=== PATIENT | female | born 1965 | race Caucasian/White ===

== ENCOUNTER → 2020-07-23 12:47 | Outpatient (CLI) | payer BC, SELFPAY ==
--- NOTE | ~2020-07-23 | MM_ITS ---
EXAMINATION: MM screening rigo BI w wil HISTORY: Screening TECHNIQUE: Craniocaudal and mediolateral oblique 3-D tomosynthesis images were obtained and synthetic 2-D images were generated. CAD analysis was submitted and interpreted. COMPARISON: Comparison to multiple prior studies sequentially, with oldest reviewed study dated 04/04. BREAST PARENCHYMAL COMPOSITION: There are scattered areas of fibroglandular density. FINDINGS: There is no evidence of suspicious mass, calcification, or architectural distortion to sugg est malignancy in either breast. There has been no suspicious interval change. IMPRESSION: 1. No mammographic evidence of malignancy. 2. Recommend routine screening mammography in one year. BI-RADS Category 1: Negative Reviewed, dictated and finalized at location A.
== END ==
PROVIDERS: PCP Family Medicine; Visit Provider Student in an Organized Health Care Education/Training Program
DX: Z12.31 Encounter for screening mammogram for malignant neoplasm of breast (principal)
CPT/HCPCS: 77063; 77067

== ENCOUNTER 2020-08-13 13:20 | Outpatient (CLI) | payer BC, SELFPAY ==
--- NOTE | 2020-08-13 13:22 | ECG_ITS ---
Measurements Intervals [place] Rate: 68 P: 57 [place]: 137 QRS: 13 QRSD: 83 T: 10 QT: 382 QTc: 409 Interpretive Statements SINUS RHYTHM EARLY PRECORDIAL R/S TRANSITION BORDERLINE T WAVE ABNORMALITY- ANT/INF LEADS BASELINE ARTIFACT- I, III, AVR, AVL, AVF BORDERLINE ECG Electronically Signed On 08-13-2020 13:44:48 CDT by Ric Lyons D.O.
== END 2020-08-13 13:21 | disposition home or self-care (01) ==
LOC: ANHSURGERY 13:22
PROVIDERS: PCP Family Medicine; Visit Provider Student in an Organized Health Care Education/Training Program
DX: Z87.891 Personal history of nicotine dependence (principal); Z01.818 Encounter for other preprocedural examination; R94.31 Abnormal electrocardiogram [ECG] [EKG]
CPT/HCPCS: 93005

== ENCOUNTER 2020-08-18 01:37 | Outpatient (CLI) | payer BC, SELFPAY ==
[2020-08-19 03:00] LABS: SARS-CoV-2 RNA PCR Negative
== END 2020-08-18 01:38 | disposition home or self-care (01) ==
LOC: ANHCOVIDDT 01:37
PROVIDERS: PCP Family Medicine; Visit Provider Student in an Organized Health Care Education/Training Program
DX: Z01.812 Encounter for preprocedural laboratory examination (principal); Z11.59 Encounter for screening for other viral diseases
CPT/HCPCS: 87635; C9803; U0003

== ENCOUNTER 2020-08-20 01:35 | Day surgery (SDC) | payer BC, SELFPAY ==
[2020-08-10 12:55] VITALS: BMI 30.4
--- NOTE | 2020-08-19 07:39 | PM.IMHP ---
H&P: HPI History of Present Illness Date/Time: 08/19/20 07:39 Patient is a 55-year-old woman who presents for a scheduled loop electrosurgical excision procedure (LEEP ). Patient had a routine Pap smear performed in June 2020 that showed atypical squamous cells, however, unable to exclude high-grade lesion. Patient underwent a colposcopy. 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 Discussion was had with patient regarding further management and decision was made to proceed with LEEP procedure. Patient reports feeling well today without complaints. Chief complaint: MALINI III Narrative: Tammie Flores is a 55 year old female Review of Systems Review of Systems: All systems reviewed & are unremarkable except as noted in HPI and below Constitutional: Constitutional: Reports as per HPI, Reports no additional constitutional complaints, Denies chills, Denies fever(s), Denies headache(s) and Denies night sweats Eyes: Eyes: Reports as per HPI and Reports no additional eye complaints ENT: Reports system reviewed and no additional complaints, except as documented, Reports as per HPI, Reports Normal hearing present and Denies headache(s) Cardiovascular: Cardiovascular: Reports as per HPI, Reports no additional cardiovascular complaints, Denies chest pain and Denies dyspnea Respiratory: Respiratory: Reports as per HPI, Reports no additional respiratory complaints, Denies cough and Denies dyspnea Gastrointestinal: Gastrointestinal: Reports as per HPI, Reports no additional gastrointestinal complaints, Denies abdominal pain, Denies change in bowel habits, Denies change in stool character, Denies nausea and Denies vomiting Genitourinary: Genitourinary: Reports no additional female genitourinary complaints, Reports as per HPI, Denies abnormal vaginal bleeding, Denies genital lesions, Denies hot flashes, Denies dyspareunia, Denies pelvic pain, Denies sexual dysfunction, Denies urinary incontinence, Denies vaginal discharge, Denies vaginal dryness and Denies vaginal odor Musculoskeletal: Musculoskeletal: Reports no additional musculoskeletal complaints and Reports as per HPI Integumentary/Breasts: Skin/Breast: Reports system reviewed and no additional complaints, except as docu, Reports as per HPI, Denies breast pain and Denies nipple discharge Neurologic: Reports system reviewed and no additional complaints, except as documented, Reports as per HPI, Reports Normal hearing present and Denies headache(s) Psychiatric: Psychiatric: Reports no additional psychiatric complaints, Reports as per HPI, Denies anxiety and Denies depression Endocrine: Endocrine: Reports no additional endocrine complaints and Reports as per HPI Hematologic/Lymphatic: Hematologic/Lymphatic: Reports no additional hematologic/lymphatic complaints and Reports as per HPI Allergic/Immunologic: Allergic/Immunologic: Reports no additional allergic/immunologic complaints and Reports as per HPI PMF Past Medical History Medical History Acid reflux Anxiety BMI 29.0-29.9,adult Depression Vaginal delivery Surgical History Surgical History History of endometrial ablation History of tubal ligation Social History Social History Smoking packs per day: 0.5 Smoking cigarettes per day: 10.0 Years smoked: 40 Smoking pack-years: 20.00 Smoking status: Former smoker Tobacco type: cigarettes Second hand tobacco smoke exposure: No Smoking end date: 10/15/01 Additional smoking assessment comments: QUIT 3 YEARS AGO Alcohol intake: current Drinks per week: 2 Substance use type: marijuana Spiritual care concerns: No Meds Home Medications and Allergies Home Medications Medication Instructions Recorded Confirmed Type Black Elderberry Gummy 1 ea PO DAILY 08/10/20 History Allergies
--- NOTE | 2020-08-19 10:18 | WPDANESEPPF ---
Anes - Initial Pre Proc Eval Procedure: Operation Date: 08/20/20 08:30 Proposed Procedures p Loop Electrical Excision Procedure - Gwendolyn Spear MD Date/Time: 08/19/20 10:18 Surgeon: Gwendolyn Spear MD Pre Op Diagnosis: MALINI III Patient Data Age: 55 Gender: F Height: 1.64 m Weight: 81.65 kg Allergies Allergy/AdvReac Type Severity Reaction Status Date / Time No Known Allergies Allergy Verified 08/10/20 12:55 Home Medications Medication Instructions Recorded Confirmed Type Black Elderberry Gummy 1 ea PO DAILY 08/10/20 History PMFSH Past Medical History Medical History Acid reflux Anxiety BMI 29.0-29.9,adult Depression Vaginal delivery Surgical History Surgical History History of endometrial ablation History of tubal ligation Social History Social History Smoking packs per day: 0.5 Smoking cigarettes per day: 10.0 Years smoked: 40 Smoking pack-years: 20.00 Smoking status: Former smoker Tobacco type: cigarettes Second hand tobacco smoke exposure: No Smoking end date: 10/15/01 Additional smoking assessment comments: QUIT 3 YEARS AGO Alcohol intake: current Drinks per week: 2 Substance use type: marijuana Spiritual care concerns: No Anes - Eval Final PreProcedure Day of Procedure 08/19/20 10:18 Patient weight: obese Heart: regular rate and rhythm Lungs: clear to auscultation and normal air movement Airway: Mallampati scale class II Neurological: alert and oriented Last oral intake: >/= 8 hours ASA classification: II Emergent: no Anesthetic plan: proceed Anesthesia type and monitoring: general GIVS Informed Consent: The patient's anesthetic plan and its attendant risks and benefits were discussed with the patient/family/POA. Questions were solicited and answers provided to the satisfaction of the patient/family/POA.
[2020-08-20] MEDS: LACTATED RINGERS 1,000 ML 30 ML IV CONT (06:53)
[2020-08-20] MEDS: ACETAMINOPHEN 500 MG TABLET 1000 MG PO (06:54)
[2020-08-20 07:00] VITALS: BP 123/68; PULSE 80; RESP 18; TEMP 36.4; O2SAT 100
--- NOTE | 2020-08-20 07:28 | WPDHPUPDATE1 ---
History and Physical Update Update Date/Time: 08/20/20 07:28 History and Physical has been reviewed, including an updated exam of the patient. There are NO changes in the patient's condition. Risks, benefits, and alternatives have been discussed and questions answered. Patient agrees to proceed with procedure.
--- NOTE | 2020-08-20 08:08 | WPDANESEPPF ---
Anes - Initial Pre Proc Eval Procedure: Operation Date: 08/20/20 08:30 Proposed Procedures p Loop Electrical Excision Procedure - Gwendolyn Spear MD Date/Time: 08/20/20 08:08 Surgeon: Gwendolyn Spear MD Pre Op Diagnosis: MALINI III Patient Data Age: 55 Gender: F Height: 5 ft 4.5 in Weight: 81.65 kg Allergies Allergy/AdvReac Type Severity Reaction Status Date / Time No Known Allergies Allergy Verified 08/20/20 08:03 Home Medications Medication Instructions Recorded Confirmed Type Black Elderberry Gummy 1 ea PO DAILY 08/10/20 History Patient hx anesthesia problems: none Family hx anesthesia problems: none PMFSH Past Medical History Medical History Acid reflux Anxiety BMI 29.0-29.9,adult Depression Vaginal delivery Surgical History Surgical History History of endometrial ablation History of tubal ligation Social History Social History Smoking packs per day: 0.5 Smoking cigarettes per day: 10.0 Years smoked: 40 Smoking pack-years: 20.00 Smoking status: Former smoker Tobacco type: cigarettes Second hand tobacco smoke exposure: No Smoking end date: 10/15/01 Additional smoking assessment comments: QUIT 3 YEARS AGO Alcohol intake: current Drinks per week: 2 Substance use type: marijuana Spiritual care concerns: No Anes - Eval Final PreProcedure Day of Procedure 08/20/20 08:08 Patient weight: obese Heart: regular rate and rhythm Lungs: clear to auscultation Airway: Mallampati scale class 1 Neurological: alert and oriented Last oral intake: >/= 8 hours ASA classification: II Emergent: no Anesthetic plan: proceed Anesthesia type and monitoring: general GIVS and standard monitoring Informed Consent: The patient's anesthetic plan and its attendant risks and benefits were discussed with the patient/family/POA. Questions were solicited and answers provided to the satisfaction of the patient/family/POA.
--- NOTE | 2020-08-20 08:19 | PM.PROC ---
Procedure Note - Detailed Date of procedure: 08/20/20 Pre-op diagnosis: MALINI III Post-op diagnosis: same Procedure performed: Loop electrosurgical excision procedure Description of procedure: The patient was taken to the operating room where she self-transferred to the operating room table. She was placed in dorsal supine position. Anesthesia was administered and found to be adequate. The patient was repositioned in dorsal lithotomy position and prepped and draped in the usual sterile fashion. A red rubber catheter was used to drain the bladder of 150cc clear urine. A coated bivalve speculum was inserted into the vagina and suction tubing was connected to the speculum. The cervix was well visualized. A paracervical block was performed with 1% lidocaine. 5 cc of lidocaine was administered on both sides for a total of 10 cc. Lugol's solution was applied across the entire surface of the cervix. A moderate sized area of non-uptake was noted circumferentially around the cervix, with a wider area noted superiorly. A wide loop was selected and connected to the electrical generator. This loop was used to excise a portion of the anterior surface of the cervix, including the cervical os. A single pass was made. The specimen was removed and set aside. A top hat portion of the endocervical canal was then excised with a smaller square loop. An endocervical curettage was also performed. Rollerball cautery was used to cauterize the entire excision site and margins of the excision bed. Excellent hemostasis was noted. The procedure was deemed complete. The vagina was dried and the speculum was removed. Both the anterior portion of the cervix and the top hat specimen were tagged at 12:00 with a suture. Specimen were prepared to be sent to pathology for analysis. The patient was cleansed and dried. She was taken out of the dorsal lithotomy position and awakened from anesthesia without difficulty. She was transported to the recovery room in stable condition. All sponge and instrument counts were correct at the end of the procedure. Anesthesia: MAC Surgeon: Gwendolyn Spear MD Estimated blood loss (mL): 5 IV fluids (mL): 500 Urine output (mL): 150 Drains: No Packing: No Pathology: yes (anterior portion of cervix tagged at 12:00 , top hat portion of cervix tagged at 12:00, endocervical curettage) Complications: No immediate complications Condition: stable Disposition: floor Findings: Moderate area of non-uptake noted circumferentially around cervix, however, wider area noted superiorly
[2020-08-20] MEDS: LIDOCAINE HCL 1% LOCAL INJ 20 ML VIAL 50 ML INFILTRATE (08:28)
[2020-08-20] MEDS: IODINE/POTASSIUM IODIDE 8 ML SOLUTION 16 ML TOPICAL (08:29)
[2020-08-20 08:53] VITALS: BP 83/51; PULSE 69; RESP 10; O2SAT 96
[2020-08-20 09:23] VITALS: BP 96/57; PULSE 64; RESP 12; O2SAT 100
== END 2020-08-20 09:35 | disposition home or self-care (01) ==
PROVIDERS: PCP Family Medicine; Visit Provider Student in an Organized Health Care Education/Training Program
PROC: 0UBC7ZZ Excision of Cervix, Via Natural or Artificial Opening (ICD-10-PCS; CPT 57522; principal; 2020-08-20 08:30)
DX: D06.9 Carcinoma in situ of cervix, unspecified (principal); Z87.891 Personal history of nicotine dependence; E66.9 Obesity, unspecified; Z68.30 Body mass index [BMI] 30.0-30.9, adult
CPT/HCPCS: 57522; 88305; A9270; J2250; J3010; J7120

== ENCOUNTER 2021-08-04 09:39 | Emergency (ER) | payer BC, SELFPAY ==
--- NOTE | ~2021-08-04 | CT_ITS ---
EXAMINATION: CT abdomen pelvis w con DATE: 08/04/2021 11:04 INDICATION: Epigastric pain TECHNIQUE: Computed tomography (CT) of the abdomen and pelvis was performed with 100 mL Omnipaque-350 intravenous contrast. Automated exposure control and iterative reconstruction technique were employe d. The dose-length product was 543.76 mGy-cm. COMPARISON: None FINDINGS: Small calcified right lower lobe nodule consistent with old granulomatous disease. Heart size is norm al. No pericardial or pleural effusion. 5 mm low-attenuation cyst in the right hepatic lobe. Gallblad humberto, spleen, pancreas, bilateral adrenal glands and kidneys are normal. There are several gas and flu id-filled duodenal diverticulum arising from the second and third portion of the duodenum. There is i nflammatory stranding and haziness to the mesenteric fat surrounding additional large diverticulum al tejinder the proximal most jejunum consistent with diverticulitis. There are multiple small likely reactiv e lymph nodes along the associated small bowel mesentery. No bowel obstruction. There is moderate col onic diverticulosis with a sigmoid predominance but without adjacent inflammatory change to suggest d iverticulitis. Normal appendix. Bladder, uterus and bilateral adnexa are unremarkable. Trace amount o f free fluid in the pelvis. No abscess or free intraperitoneal gas. No pathologically enlarged abdomi nal or pelvic lymphadenopathy. Minimal anterior wedging at L1 and L2. Mild lumbar spondylosis. IMPRESSION: 1. Radiographically uncomplicated proximal jejunal diverticulitis. Reviewed, dictated and finalized at location A.
[2021-08-04 09:51] VITALS: BP 125/52; PULSE 121; RESP 20; TEMP 36.4; O2SAT 97
[2021-08-04 10:11] LABS: Basophils Absolute Auto 0.1 K/mm3 (0.0-0.1); Basophils Percent Auto 0.4 % (0.2-1.2); Eosinophils Percent Auto 0.1 % (0-4.4); Immature Granulocyte Absolute 0.12 K/mm3 (0.00-0.031); Immature Granulocyte Percent A 0.7 % (0-0.5); Lymphocytes Absolute Auto 0.83 K/mm3 (0.9-3.2); Lymphocytes Percent Auto 4.9 % (18.3-44.2); Mean Corpuscular HGB Conc 33.3 g/dl (32-36); Mean Corpuscular Hemoglobin 30.9 pg (26-34); Mean Corpuscular Volume 92.8 fl (80-100); Mean Platelet Volume 9.6 fl (7.4-10.4); Monocytes Percent Auto 5.9 % (2.6-8.5); Neutrophils Absolute Auto 14.8 K/mm3 (1.3-6.7); Platelet Count Result 296 k/mm3 (150-375); Red Blood Count 4.85 M/mm3 (4.2-5.4); Red Cell Distribution Width 12.7 % (11.5-14.5); White Blood Count 16.8 K/mm3 (4.5-10.0)
[2021-08-04 10:27] LABS: Alanine Aminotransferase 19 U/L (4-35); Albumin Level 4.7 g/dL (3.5-5.1); Alkaline Phosphatase 106 U/L (38-126); Anion Gap 11 mmol/L (8-16); Aspartate Amino Transferase 28 U/L (14-36); Bilirubin,Total 1.3 mg/dL (0.2-1.3); Blood Urea Nitrogen 13 mg/dL (7-17); Calcium 9.7 mg/dL (8.4-10.2); Carbon Dioxide 25 mmol/L (22-30); Chloride 101 mmol/L (98-107); Estimated CRCL calculation 117 ml/min; Estimated Glomerular Filt Rate > 60; Glucose 122 mg/dL (65-110); Lipase 26 U/L (23-300); Potassium 4.2 mmol/L (3.4-5.0); Sodium 137 mmol/L (137-145)
[2021-08-04] MEDS: ONDANSETRON INJ 4 MG/2 ML VIAL IV PUSH (10:28)
[2021-08-04] MEDS: BELLADONNA ALK/PHENOB ELIX 10 ML, MAG HYDROX/ALUMINUM HYD/SIMETH 30 ML, LIDOCAINE HCL 2... PO (11:15)
[2021-08-04] MEDS: SODIUM CHLORIDE 0.9% IV 1,000 ML 999 ML IV CONT (11:16)
[2021-08-04] MEDS: MORPHINE SULFATE (*CRX) 2 MG/ML INJ IV PUSH (11:16)
[2021-08-04 11:37] VITALS: BP 104/85; PULSE 92; RESP 18; O2SAT 97
[2021-08-04 12:09] LABS: Add Urine Microscopic? NO; Appearance Urine Clear (Clear); Bilirubin Urine Negative (Negative); Blood Urine Negative (Negative); Color Urine Straw (Yellow); Glucose Urine UA Negative (Negative); Ketones Urine Negative (Negative); Leukocyte Esterase Ur Negative LEU/UL (Negative); Nitrate Urine Negative (Negative); Protein Urine Negative (Negative); RBC Urine 0-2 /hpf (0-2); Specific Grav Ur 1.029 (1.001-1.035); Squamous Epithelial Cell Urine Few /hpf (Few); Urobilinogen Urine Negative mg/dL (<2.0); WBC Urine 0-3 /hpf
--- NOTE | 2021-08-04 12:15 | ED.ABDPAIN ---
HPI - Abdominal Pain General Chief Complaint: Abdominal Pain <ART Gresham Last Filed: 08/04/21 12:29> Stated Complaint: ABD pain, bloating <ART Gresham Last Filed: 08/04/21 12:29> Time Seen by Provider: 08/04/21 09:49 <ART Gresham Last Filed: 08/04/21 12:29> Source: patient <ART Gresham Last Filed: 08/04/21 12:29> Mode of arrival: ambulatory <ART G[place]am Last Filed: 08/04/21 12:29> Limitations: no limitations <ART Gresham Last Filed: 08/04/21 12:29> History of Present Illness HPI narrative: Patient presents with chief complaint of epigastric discomfort that began yesterday. Patient reports that she does not know the cause of her discomfort. She reports a bloating-like sensation. She denies any fevers, vomiting or inability to eat and drink. Patient denies history of appendicitis. She reports she has history of GERD and only takes her omeprazole as needed. She reports that her sensation is not the same as GERD flareup. Patient denies any diarrhea, constipation or blood in her stool. She denies chest pain or shortness of breath. <ART Gresham Last Filed: 08/04/21 12:29> Related Data Home Medications: Home Medications Medication Instructions Recorded Confirmed Black Elderberry Gummy 1 ea PO DAILY 08/10/20 <ART Gresham Last Filed: 08/04/21 12:29> Allergies/Adverse Reactions: Allergies Allergy/AdvReac Type Severity Reaction Status Date / Time No Known Allergies Allergy Verified 07/01/21 13:09 <ART Gresham Last Filed: 08/04/21 12:29> Review of Systems Review of Systems: CONSTITUTIONAL: Denies fever, chills, or sweats. EYES: Denies visual changes, redness, or discharge. ENT: Denies rhinorrhea, congestion, sore throat, or otalgia. CARDIOVASCULAR: Denies chest pain, palpitations, or edema. RESPIRATORY: Denies cough or dyspnea. GASTROINTESTINAL: Reports abdominal pain, denies vomiting, or diarrhea. GENITOURINARY: Denies dysuria or hematuria. SKIN: Denies rash or itching. MUSCULOSKELETAL: Denies back pain, joint pain, or myalgia. NEUROLOGIC: Denies headache, numbness, dizziness, or weakness. PSYCHIATRIC: Denies anxiety or depression. <Catalino Perry PA-C - Last Filed: 08/04/21 12:29> PMFSH Past Medical History Medical History: Medical History Acid reflux Anxiety BMI 29.0-29.9,adult Depression Vaginal delivery <Catalino Perry PA-C - Last Filed: 08/04/21 12:29> Surgical History Surgical History: Surgical History History of endometrial ablation History of tubal ligation <Catalino Perry PA-C - Last Filed: 08/04/21 12:29> Social History Social History: Social History Smoking packs per day: 0.5 Smoking cigarettes per day: 10.0 Years smoked: 40 Smoking pack-years: 20.00 Smoking status: Former smoker Tobacco type: cigarettes Second hand tobacco smoke exposure: No Smoking end date: 10/15/01 Additional smoking assessment comments: QUIT 3 YEARS AGO Alcohol intake: current Drinks per week: 2 Substance use type: marijuana Spiritual care concerns: No <Catalino Perry PA-C - Last Filed: 08/04/21 12:29> Exam Narrative: GENERAL: Well-appearing, well-nourished, and in no acute distress. HEAD: Normocephalic, atraumatic. EYES: PERRLA and EOMI. NECK: Supple. No adenopathy or masses. CHEST: Clear to auscultation. No respiratory distress. No wheezes rales or rhonchi HEART: Regular rate and rhythm. No murmur heard. Normal peripheral pulses. ABDOMEN: Soft, tender to palpation epigastrically, nondistended, normal active bowel sounds. EXTREMITIES: Normal range of motion. No edema. SKIN: Warm, dry, no rash. NEURO: No focal deficits. Alert and oriented
[2021-08-04 12:42] VITALS: BP 152/77; PULSE 68; RESP 14; TEMP 37.2; O2SAT 100
== END 2021-08-04 12:43 | disposition home or self-care (01) ==
PROVIDERS: Emergency Provider Emergency Medicine; PCP Family Medicine
DX: K57.12 Diverticulitis of small intestine without perforation or abscess without bleeding (principal); K21.9 Gastro-esophageal reflux disease without esophagitis; Z87.891 Personal history of nicotine dependence
CPT/HCPCS: 36415; 74177; 80053; 81003; 81025; 83690; 85025; 96361; 96374; 96375; 99284; A9270; J0131; J1170; J2270; J2405; J3010; J7030; Q9967

== ENCOUNTER 2021-08-26 07:26 | Outpatient (CLI) | payer BC, SELFPAY ==
--- NOTE | ~2021-08-26 | XR_ITS ---
EXAMINATION: XR UGIAC w small bowel DATE: 08/26/2021 08:59 INDICATION: Jejunal diverticulitis without perforation. TECHNIQUE: The patient drank thick barium, gas-producing crystals, and thin barium. Fluoroscopy of th e esophagus, stomach, and small bowel was performed. Fluoroscopy exposure time was 0.7 minutes. Radio graphs of the abdomen were obtained. The total number of images was 252. COMPARISON: CT abdomen and pelvis 08/04/2021 FINDINGS: UPPER GASTROINTESTINAL SERIES: There is no mass or stricture of the esophagus. Esophageal motility is normal. There is no hiatal her wendy. There was no gastroesophageal reflux with provocative maneuvers. The stomach shows a normal fold ing pattern. SMALL BOWEL SERIES: There are multiple diverticula of the duodenum and proximal jejunum. There are no dilated loops of christopher wel. The terminal ileum is normal. Transit time to the colon was 30 minutes. IMPRESSION: 1. Diverticulosis of the duodenum and proximal jejunum. Reviewed, dictated and finalized at location A. IRATORY TECHNICIAN
== END 2021-08-26 07:27 | disposition home or self-care (01) ==
PROVIDERS: PCP Family Medicine; Visit Provider Nurse Practitioner Family
DX: K57.12 Diverticulitis of small intestine without perforation or abscess without bleeding (principal)
CPT/HCPCS: 74246; 74248

== ENCOUNTER 2021-09-30 00:20 | Day surgery (SDC) | payer BC, SELFPAY ==
[2021-09-22 13:08] VITALS: BMI 28.7
[2021-09-30 07:25] VITALS: BP 118/75; PULSE 77; RESP 18; TEMP 36.2; O2SAT 100; BMI 26.8
--- NOTE | 2021-09-30 07:46 | WPDANESEPPF ---
Anes - Initial Pre Proc Eval Procedure: Operation Date: 09/30/21 08:30 Proposed Procedures p Esophagogastroduodenoscopy - Dimitri Maciel MD Date/Time: 09/30/21 07:46 Surgeon: Dimitri Maciel MD Pre Op Diagnosis: diverticulitis of the small intestine Patient Data Age: 56 Gender: F Height: 1.65 m Weight: 73.1 kg Last Vital Signs Temp 36.2 C L 09/30/21 07:25 Pulse 77 09/30/21 07:25 Resp 18 09/30/21 07:25 BP 118/75 09/30/21 07:25 Pulse Ox 100 09/30/21 07:25 Allergies Allergy/AdvReac Type Severity Reaction Status Date / Time No Known Allergies Allergy Verified 09/30/21 07:27 Home Medications Medication Instructions Recorded Confirmed Type No Home Medications 09/22/21 09/30/21 History Patient hx anesthesia problems: none Family hx anesthesia problems: none Results Review: All pre-operative results and documents have been reviewed as part of the pre-operative evaluation. [facility] Past Medical History Medical History Acid reflux Anxiety BMI 29.0-29.9,adult Depression Diverticulitis of jejunum Vaginal delivery Surgical History Surgical History History of endometrial ablation History of tubal ligation Social History Social History Smoking packs per day: 0.5 Smoking cigarettes per day: 10.0 Years smoked: 35 Smoking pack-years: 17.50 Smoking status: Former smoker Tobacco type: cigarettes Second hand tobacco smoke exposure: No Smoking end date: 10/15/16 Additional smoking assessment comments: QUIT 3 YEARS AGO Alcohol intake: current Drinks per week: 1 Alcohol use details: social drinker Substance use type: marijuana Living arrangements: with family Spiritual care concerns: No Anes - Eval Final PreProcedure Day of Procedure 09/30/21 07:46 Patient weight: overweight Heart: regular rate and rhythm Lungs: clear to auscultation Airway: Mallampati scale class 1 Neurological: alert and oriented Last oral intake: >/= 8 hours ASA classification: II Emergent: no Anesthetic plan: proceed Anesthesia type and monitoring: general GIVS and standard monitoring Results Review: All pre-operative results and documents have been reviewed as part of the pre-operative evaluation. Informed Consent: The patient's anesthetic plan and its attendant risks and benefits were discussed with the patient/family/POA. Questions were solicited and answers provided to the satisfaction of the patient/family/POA.
[2021-09-30] MEDS: LACTATED RINGERS 1,000 ML 150 ML IV CONT (07:48)
--- NOTE | 2021-09-30 07:55 | WPDGICN ---
Assessment and Plan Assessment and plan (1) Diverticulitis of jejunum: Code(s): K57.12 - Diverticulitis of small intestine without perforation or abscess without bleeding Status: Acute Assessment and Plan: patient has resolved diverticulitis of the small bowel. Appears to have diverticula within the jejunum. Would recommend transitioning to a high-fiber diet at this time. (2) Heartburn: Code(s): R12 - Heartburn Status: Acute Assessment and Plan: Patient has chronic heartburn suggesting underlying acid reflux for this reason EGD will be performed antacids are beneficial. Anti-reflux measures encourage including elevating head of bed at night no late snacks bland foods. Further recommendations regarding medications will be given after endoscopy. GI Consult Note Consult date/time: 09/30/21 07:55 HPI: Tammie Flores is a 56 year old female Presents for EGD. Patient has a history of diverticulitis in July of 2021. She developed mid abdominal pain. Workup in evaluation in the emergency room revealed small bowel diverticulitis. A subsequent follow-up and small-bowel series revealed multiple jejunal diverticula. Patient has been on a low residue diet. She currently denies abdominal pain. Her bowel habits are regular. Patient also reports a history of heartburn for many years. She currently treats this with intermittent use of [id number] antacids. EGD has been requested to evaluate more thoroughly. Review of Systems Review of Systems: All systems reviewed & are unremarkable except as noted in HPI and below PMFSH Past Medical History Medical History Acid reflux Anxiety BMI 29.0-29.9,adult Depression Diverticulitis of jejunum Vaginal delivery Surgical History Surgical History History of endometrial ablation History of tubal ligation Social History Social History Smoking packs per day: 0.5 Smoking cigarettes per day: 10.0 Years smoked: 35 Smoking pack-years: 17.50 Smoking status: Former smoker Tobacco type: cigarettes Second hand tobacco smoke exposure: No Smoking end date: 10/15/16 Additional smoking assessment comments: QUIT 3 YEARS AGO Alcohol intake: current Drinks per week: 1 Alcohol use details: social drinker Substance use type: marijuana Living arrangements: with family Spiritual care concerns: No Meds Home Medications and Allergies Home Medications Medication Instructions Recorded Confirmed Type No Home Medications 09/22/21 09/30/21 History Allergies Allergy/AdvReac Type Severity Reaction Status Date / Time No Known Allergies Allergy Verified 09/30/21 07:27 Vital Signs Vital Signs - 24 hr 09/30/21 07:25 Temperature 97.1 F L Pulse Rate 77 Respiratory Rate 18 Blood Pressure 118/75 Pulse Oximetry 100 Exam Narrative: Physical exam reveals patient to be alert. Vital signs stable. HEENT exam is unremarkable. Patient is anicteric. Lungs are clear to auscultation and percussion. Heart is without murmur or extra sounds. Abdominal exam bowel sounds present soft nontender with no organomegaly.
[2021-09-30 08:45] VITALS: BP 109/75; PULSE 71; RESP 27; O2SAT 100
[2021-09-30 08:55] VITALS: BP 131/85; PULSE 70; RESP 14; O2SAT 100
[2021-09-30 09:05] VITALS: BP 129/87; PULSE 70; RESP 15; O2SAT 100
== END 2021-09-30 09:19 | disposition home or self-care (01) ==
PROVIDERS: PCP Family Medicine; Visit Provider Internal Medicine Gastroenterology
PROC: 0DJ08ZZ Inspection of Upper Intestinal Tract, Via Natural or Artificial Opening Endoscopic (ICD-10-PCS; CPT 43235; principal; 2021-09-30 08:30)
DX: R12 Heartburn (principal); K21.00 Gastro-esophageal reflux disease with esophagitis, without bleeding; F41.8 Other specified anxiety disorders; Z87.891 Personal history of nicotine dependence; F12.90 Cannabis use, unspecified, uncomplicated
CPT/HCPCS: 43239; 87081; J2704; J7120

== ENCOUNTER → 2021-11-04 12:47 | Outpatient (CLI) | payer BC, SELFPAY ==
--- NOTE | ~2021-11-04 | MM_ITS ---
EXAMINATION: MM screening rigo BI w wil HISTORY: Screening TECHNIQUE: Craniocaudal and mediolateral oblique 3-D tomosynthesis images were obtained and synthetic 2-D images were generated. CAD analysis was submitted and interpreted. COMPARISON: Comparison to multiple prior studies sequentially, with oldest reviewed study dated 10/30. BREAST PARENCHYMAL COMPOSITION: There are scattered areas of fibroglandular density. FINDINGS: There is no evidence of suspicious mass, calcification, or architectural distortion to sugg est malignancy in either breast. There has been no suspicious interval change. IMPRESSION: 1. No mammographic evidence of malignancy. 2. Recommend routine screening mammography in one year. BI-RADS Category 1: Negative Reviewed, dictated and finalized at location A. LE PASTER
== END ==
PROVIDERS: PCP Family Medicine; Visit Provider Student in an Organized Health Care Education/Training Program
DX: Z12.31 Encounter for screening mammogram for malignant neoplasm of breast (principal)
CPT/HCPCS: 77063; 77067

== ENCOUNTER → 2022-12-29 15:28 | Outpatient (CLI) | payer BC, SELFPAY ==
--- NOTE | ~2022-12-29 | MM_ITS ---
EXAMINATION: MM screening rigo BI w wil HISTORY: Screening mammogram TECHNIQUE: Craniocaudal and mediolateral oblique 3-D tomosynthesis images were obtained and synthetic 2-D images were generated. CAD analysis was submitted and interpreted. COMPARISON: 10/26/2021, 08/02/2020, 05/16/2019 bilateral screening mammogram examinations BREAST PARENCHYMAL COMPOSITION: There are scattered areas of fibroglandular density. FINDINGS: There is no evidence of suspicious mass, calcification, or architectural distortion to sugg est malignancy in either breast. There has been no suspicious interval change. IMPRESSION: 1. No mammographic evidence of malignancy. 2. Recommend routine screening mammography in one year. BI-RADS Category 1: Negative Reviewed, dictated and finalized at location A.
== END ==
PROVIDERS: PCP Obstetrics & Gynecology; Visit Provider Family Medicine
DX: Z12.31 Encounter for screening mammogram for malignant neoplasm of breast (principal)
CPT/HCPCS: 77063; 77067

== ENCOUNTER 2023-01-05 01:44 | Day surgery (SDC) | payer BC, SELFPAY ==
[2022-12-28 13:00] VITALS: BMI 27.5
[2023-01-05 06:54] VITALS: BP 117/75; PULSE 90; RESP 20; TEMP 36.4; O2SAT 100; BMI 26.6
[2023-01-05] MEDS: LACTATED RINGERS 1,000 ML 150 ML IV CONT (07:01)
--- NOTE | 2023-01-05 07:05 | P.PNAN_ITS ---
Anes - Initial Pre Proc Eval Procedure: Operation Date: 01/05/23 08:00 Proposed Procedures p Screening Colonoscopy - Dimitri Maciel MD Date/Time: 01/05/23 07:06 Surgeon: Dimitri Maciel MD Pre Op Diagnosis: neoplasm screening Patient Data Age: 57 Gender: F Height: 1.65 m Weight: 72.5 kg Last Vital Signs Temp 36.4 C L 01/05/23 06:54 Pulse 90 01/05/23 06:54 Resp 20 01/05/23 06:54 BP 117/75 01/05/23 06:54 Pulse Ox 100 01/05/23 06:54 O2 Del Method Room Air 01/05/23 06:54 Allergies Allergy/AdvReac Type Severity Reaction Status Date / Time No Known Allergies Allergy Verified 01/05/23 06:53 Patient hx anesthesia problems: none Family hx anesthesia problems: none Results Review: All pre-operative results and documents have been reviewed as part of the pre- operative evaluation. [facility] Past Medical History Medical History Acid reflux Anxiety BMI 29.0-29.9,adult Depression Diverticulitis of jejunum Vaginal delivery Surgical History Surgical History History of endometrial ablation History of tubal ligation Social History Social History Smoking packs per day: 0.5 Smoking cigarettes per day: 10.0 Years smoked: 30 Smoking pack-years: 15.00 Smoking status: Former smoker Tobacco type: cigarettes Second hand tobacco smoke exposure: No Smoking end date: 10/15/16 Additional smoking assessment comments: QUIT 3 YEARS AGO Alcohol intake: current Drinks per week: 1 Alcohol use details: social drinker Substance use type: does not use Living arrangements: with family Spiritual care concerns: No Anes - Eval Final PreProcedure Day of Procedure 01/05/23 07:06 Patient weight: overweight Heart: regular rate and rhythm Lungs: clear to auscultation Airway: Mallampati scale class II Neurological: alert and oriented Last oral intake: >/= 8 hours ASA classification: II Emergent: no Anesthetic plan: proceed Anesthesia type and monitoring: general GIVS and standard monitoring Results Review: All pre-operative results and documents have been reviewed as part of the pre- operative evaluation. Informed Consent: The patient's anesthetic plan and its attendant risks and benefits were discussed with the patient/family/POA. Questions were solicited and answers provided to the satisfaction of the patient/family/POA.
--- NOTE | 2023-01-05 07:55 | PM.HPGS ---
History of Present Illness History of Present Illness Consent: Risks, benefits, and alternatives have been discussed and questions answered. Patient agrees to proceed with procedure. Chief complaint: neoplasm screening Narrative: Tammie Flores is a 57 year old female Presents for screening colonoscopy. Patient's current weight appetite and bowel movements are normal. Patient denies abdominal pain. She has had no bleeding. Family history noncontributory. Review of Systems Review of Systems: Review of systems noncontributory. [facility] Past Medical History Medical History Acid reflux Anxiety BMI 29.0-29.9,adult Depression Diverticulitis of jejunum Vaginal delivery Surgical History Surgical History History of endometrial ablation History of tubal ligation Social History Social History Smoking packs per day: 0.5 Smoking cigarettes per day: 10.0 Years smoked: 30 Smoking pack-years: 15.00 Smoking status: Former smoker Tobacco type: cigarettes Second hand tobacco smoke exposure: No Smoking end date: 10/15/16 Additional smoking assessment comments: QUIT 3 YEARS AGO Alcohol intake: current Drinks per week: 1 Alcohol use details: social drinker Substance use type: does not use Living arrangements: with family Spiritual care concerns: No Meds Home Medications and Allergies Allergies Allergy/AdvReac Type Severity Reaction Status Date / Time No Known Allergies Allergy Verified 01/05/23 06:53 Vital Signs Vital Signs - 24 hr 01/05/23 06:54 Temperature 97.5 F L Pulse Rate 90 Respiratory Rate 20 Blood Pressure 117/75 Pulse Oximetry 100 Oxygen Delivery Room Air Exam Narrative: Physical exam reveals patient be alert. Vital signs stable. HEENT exam is unremarkable. Patient is anicteric. Lungs are clear to auscultation and percussion. Heart is without murmur or extra sounds. Abdominal exam bowel sounds present soft nontender with no hepatosplenomegaly. Digital external rectal exam is normal. Assessment and Plan Assessment and plan (1) Encounter for screening colonoscopy: Code(s): Z12.11 - Encounter for screening for malignant neoplasm of colon Status: Acute Assessment and Plan: Patient presents for screening colonoscopy. Appears to be at average risk for colon polyps.
[2023-01-05 08:22] VITALS: BP 101/66; PULSE 81; RESP 16; O2SAT 100
[2023-01-05 08:32] VITALS: BP 107/71; PULSE 79; RESP 13; O2SAT 100
[2023-01-05 08:42] VITALS: BP 108/75; PULSE 73; RESP 16; O2SAT 100
== END 2023-01-05 08:47 | disposition home or self-care (01) ==
PROVIDERS: PCP Family Medicine; Visit Provider Internal Medicine Gastroenterology
PROC: 0DJD8ZZ Inspection of Lower Intestinal Tract, Via Natural or Artificial Opening Endoscopic (ICD-10-PCS; CPT 45378; principal; 2023-01-05 08:00)
DX: Z12.11 Encounter for screening for malignant neoplasm of colon (principal); K62.1 Rectal polyp; K64.8 Other hemorrhoids; K57.30 Diverticulosis of large intestine without perforation or abscess without bleeding; Z87.891 Personal history of nicotine dependence
CPT/HCPCS: 45385; 88305; J2704; J7120

== ENCOUNTER 2024-02-15 12:12 | Outpatient (CLI) | payer BC, SELFPAY ==
--- NOTE | ~2024-02-15 | MM_ITS ---
EXAMINATION: MM screening rigo BI w wil HISTORY: Screening mammogram TECHNIQUE: Craniocaudal and mediolateral oblique 3-D tomosynthesis images were obtained and synthetic 2-D images were generated. CAD analysis was submitted and interpreted. COMPARISON: 12/29/2022, 11/04/2021 bilateral screening mammogram examinations BREAST PARENCHYMAL COMPOSITION: There are scattered areas of fibroglandular density. FINDINGS: Bilateral stable benign circumscribed probable intramammary lymph nodes There is no evidenc e of suspicious mass, calcification, or architectural distortion to suggest malignancy in either reyna st. There has been no suspicious interval change. IMPRESSION: 1. No mammographic evidence of malignancy. 2. Recommend routine screening mammography in one year. BI-RADS Category 1: Negative Reviewed, dictated and finalized at location A.
== END 2024-02-15 12:13 ==
LOC: MICIMG 12:13
PROVIDERS: PCP Obstetrics & Gynecology; Visit Provider Obstetrics & Gynecology
DX: Z12.31 Encounter for screening mammogram for malignant neoplasm of breast (principal)
CPT/HCPCS: 77063; 77067

== ENCOUNTER 2025-02-20 07:19 | Outpatient (CLI) | payer BC, SELFPAY ==
--- NOTE | ~2025-02-20 | MM_ITS ---
EXAMINATION: MM screening rigo BI w wil HISTORY: Screening TECHNIQUE: Craniocaudal and mediolateral oblique 3-D tomosynthesis images were obtained and synthetic 2-D images were generated. CAD analysis was submitted and interpreted. COMPARISON: Comparison to multiple prior studies sequentially, with oldest reviewed study dated 04/05. BREAST PARENCHYMAL COMPOSITION: Not dense: There are scattered areas of fibroglandular density. FINDINGS: There is no evidence of suspicious mass, calcification, or architectural distortion to sugg est malignancy in either breast. There has been no suspicious interval change. IMPRESSION: 1. No mammographic evidence of malignancy. 2. Recommend routine screening mammography in one year. BI-RADS Category 1: Negative Reviewed, dictated and finalized at location A.
== END 2025-02-20 07:20 | disposition home or self-care (01) ==
PROVIDERS: PCP Obstetrics & Gynecology; Visit Provider Obstetrics & Gynecology
DX: Z12.31 Encounter for screening mammogram for malignant neoplasm of breast (principal)
CPT/HCPCS: 77063; 77067

== ENCOUNTER 2025-04-20 11:49 | Outpatient (NON) | payer BC, SELFPAY ==
--- OUTSIDE RECORDS SUMMARY | 2025-04-21 12:00 | XMS_ITS | Clinical Summary ---
Author Organization [facility] [place] [facility] [facility] Address [address] [place] [address] Care Team Providers Care Refund Specialist Name Role Phone Pepe Tran MD Primary Care Provider [phone] Allergies No known active allergies Medications estradioL (ESTRACE) 0.01 % (0.1 mg/gram) vaginal cream 1 G VAGINALLY EVERY OTHER DAY FOR 2 WEEKS, THEN CONTINUE USING TWICE WEEKLY THEREAFTER 4 Active dilTIAZem (CARDIZEM) 30 mg tablet TAKE 1 TABLET BY MOUTH DAILY NEEDED FOR ELEVATED HEART RATE, TAKE ONE TABLET FOR SVT >1 HOUR, IF STILL IN SVT 2 HOURS LATER TAKE A SECOND DOSE, IF 2 HOURS LATER STILL IN SVT, PROCEED TO ED 270 tablet 1 4 Active meloxicam (MOBIC) 15 mg tablet Take 1 tablet (15 mg total) by mouth daily 30 tablet 4 Active Active Problems Problem Noted Date Diagnosed Date Sinus tachycardia 05/23/2024 Premature atrial contraction 05/23/2024 SVT (supraventricular tachycardia) 05/23/2024 Resolved Problems Problem Noted Date Diagnosed Date Resolved Date Diverticulitis 08/10/2021 03/06/2024 URI with cough and congestion 07/24/2019 03/06/2024 Annual physical exam 02/21/2019 024 Encounters Date Type Department Care Team Description 01/20/2025 Orders Only [facility] [address] [place] [address] Yun Gonzalez RN Personal history of nicotine dependence from Last 3 Months Immunizations Immunization Administration Dates Next Due Influenza, Unspecified 07/15/2023(Deferr ed: Patient decision),09/03/2022(Deferred: Patient Refused),08/10/2021(Deferred: Patient Refused),10/15/2020(Deferred: Patient Refused) Surgical History Surgery Date Site/Laterality Comments TUBAL LIGATION HYSTEROSCOPY W/ ENDOMETRIAL ABLATION Family History Medical History Relation Name Comments Alcohol abuse Father Brain cancer Maternal Grandmother Relation Name Status Comments Father Maternal Grandmother Mother Social History Tobacco Use Types Packs/Day Years Used Date Smoking Tobacco: Former Cigarettes 1 35 1 982 - 2017 Smokeless Tobacco: Former Tobacco Cessation:Counseling Given: Not Answered Alcohol Use Standard Drinks/Week Comments Yes 2 (1 standard drink = 0.6 oz pur e alcohol) AUDIT-C Answer Date Recorded Q1: How often do you have a drink containing alc ohol? 2-4 times a month 03/06/2024 Q2: How many drinks containi ng alcohol do you have on a typical day when you are drinking? 1 or 2 03/06/2024 Q3: How often do you have si x or more drinks on one occasion? 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 Respiratory Rate 18 09/18/2024 3:09 PM 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 Oxygen Saturation 99% 09/18/2024 3:09 PM 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 Inhaled Oxygen Concentration - - Weight 79.1 kg (174 lb 6.4 oz) 09/18/2024 3:09 P M 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 Height 162.6 cm (5' 4) 09/18/2024 3:09 PM 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 Body Mass Index 29.94 09/18/2024 3:09 PM 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 Plan of Treatment Health Maintenance Due Date Last Done Comments Cervical Cancer Screening 1965 Hepatitis C Screening 1967 DTaP/Tdap/Td Vaccine (1 - Tdap) 1978 Hepatitis B Screening 1985 Zoster Vaccine (1 of 2) 2017 Covid-19 Vaccine (2 - season) 2024 07/06/2021 Regular Well Visit/Exam 18-64 12/13/2024 12/14/2023, 11/23/2022, 02/21/2019 Breast Cancer Screening-Mammogram 02/14/2025 02/15/2024, 12/29/2022, 07/23/2020 Lung Cancer Screening 02/14/2025 02/14/2024 Influenza Vaccine (#1) 2025 Depression Screening 09/18/2025 09/18/2024, 12/14/2023, 11/23/2022, Additional history exists Colon Cancer Screening-Colonoscopy 01/05/2033 01/05/2023, 01/05/2023 Colon Cancer Screening-CT Colonography Discontinued 01/05/2023, 01/05/2023 Colon Cancer Screening-DNA Stool Discontinued 01/05/2023, 01/05/2023, 03/16/2019 Colon Cancer Screening-FIT Discontinued 01/05, 01/05/2023, 03/16/2019 Colon Cancer Screening-Sigmoidoscopy Discontinued 01/05/2023, 01/05/2023 Pneumococcal vaccine <65 Aged Out No longer eligible based on patient's age to complete this topic Procedures Procedure Name Priority Date/Time Associated Diagnosis Comments SCREENING MAMMOGRAM Schedule Routine, Read Routine (OP Routine) 02/15/2024 CT LUNG CANCER SCREENING Schedule Routine, Read Routine (OP Routine) 02/14/2024 4:12 PM CDT Personal history of nicotine dependence HM COLONOSCOPY Routine 01/05/2023 from Last 3 Months or Most Recently Relevant to Health Maintenance Results * Screening Mammogram (02/15/2024) Anatomical Region Laterality Modality Breast N/A Mammography us Historical Provider MD BASILIO MAMMO PROCEDURES Radha l Result * CT Lung Cancer Screening (02/14/2024 4:12 PM CDT) Anatomical Region Laterality Modality Chest N/A Computed Tomogra phy 02/15/2024 12:4 0 PM CDT Narrative 02/15/2024 12:45 PM CDT EXAM DESCRIPTION: CT LUNG CANCER SCREENING REASON FOR STUDY: Screening CT of the chest in a former smoker with a 35 pack year smoking history. Additional history: None. TECHNIQUE: Low dose CT scan of the chest was performed without intravenous contrast using helical scanning technique. The exam extends from the lung apices through the lung bases. Automatic exposure control was used as a dose optimization technique. NOTE: This study was performed for the specific purposes of lung cancer screening and is not an alternative to diagnostic chest CT. RADIATION DOSE: CT dose index volume (CTDIvol) = 1.83 mGy COMPARISON: None FINDINGS: SMOKING RELATED LUNG DISEASE: Mild emphysema. LUNG NODULES: 3 mm in the left upper lobe (3/104), 2 mm nodule in the peripheral left upper lobe (3/128), 4 mm nodule in the left lower lobe (3/196), 3 mm perifissural nodule (3/213), 3 mm nodule in the right apex (3/52), 4 mm nodule along the major fissure (3/124) CORONARY ARTERY CALCIFICATION: None OTHER: No focal consolidation, pleural effusion or pneumothorax. Normal-sized heart with small pericardial effusion. Normal caliber of the great vessels. Atherosclerotic calcification of the aorta and coronary arteries. No pleural effusion. No thoracic lymphadenopathy. Visualized upper abdomen demonstrates no acute findings. No suspicious osseous findings. IMPRESSION: Bilateral pulmonary micro nodules measuring 4 mm or less, likely infectious/inflammatory nodules. No suspicious pulmonary nodule. Lung-RADS category 2: Benign appearance or behavior. Recommendation: Low dose Screening CT of chest in 12 months. THIS IS AN ELECTRONICALLY VERIFIED FINAL REPORT 02/15/2024 12:45 PM - Electronically signed by Giana Hughes M.D. FT T: Report ID: [id number] Reading Location: [place] [address] Procedure Note Giana Salas MD - 02/15/2024 EXAM DESCRIPTION: CT LUNG CANCER SCREENING REASON FOR STUDY: Screening CT of the chest in a former smoker with a35 pack year smoking history. Additional history: None. TECHNIQUE: Low dose CT scan of the chest was performed without intravenous contrast using helical scanning technique. The exam extends from the lung apices through the lung bases. Automatic exposure control was used as adose optimization technique. NOTE: This study was performed for the specific purposes of lung cancer screening and is not an alternative to diagnostic chest CT. RADIATION DOSE: CT dose index volume (CTDIvol) = 1.83 mGy COMPARISON: None FINDINGS: SMOKING RELATED LUNG DISEASE: Mild emphysema. LUNG NODULES: 3 mm in the left upper lobe (3/104), 2 mm nodule in the peripheral left upper lobe (3/128), 4 mm nodule in the left lower lobe (3/196), 3 mm perifissural nodule (3/213), 3 mm nodule in the right apex (3/52), 4 mm nodule along the major fissure (3/124) CORONARY ARTERY CALCIFICATION: None OTHER: No focal consolidation, pleural effusion or pneumothorax. Normal-sized heart with small pericardial effusion. Normal caliber of the great vessels. Atherosclerotic calcification of the aorta and coronary arteries. No pleural effusion. No thoracic lymphadenopathy. Visualizedupper abdomen demonstrates no acute findings. No suspicious osseous findings. IMPRESSION: Bilateral pulmonary micro nodules measuring 4 mm or less,likely infectious/inflammatory nodules. No suspicious pulmonary nodule. Lung-RADS category 2: Benign appearance or behavior. Recommendation: Low dose Screening CT of chest in 12 months. THIS IS AN ELECTRONICALLY VERIFIED FINAL REPORT 02/15/2024 12:45 PM - Electronically signed by Giana Hughes M.D. FT T: Report ID: [id number] Reading Location: [place] [address] Pepe Tran MD IMG CT PROCEDURES Final Resul t * HM COLONOSCOPY (01/05/2023) Historical Provider HEALTH MAINTENANCE Final Result from Last 3 Months or Most Recently Relevant to Health Maintenance Insurance [employer] CHOICE Care Teams Refund Specialist Relationship Specialty Start Date End Date Pepe Tran MD PCP - General Family Medicine 01/07/19
--- OUTSIDE RECORDS SUMMARY | 2025-04-21 12:00 | XMS_ITS | Referral Summary ---
Author Organization [facility] [place] [address] [facility] Address [address] [place] [address] Care Team Providers Care Acoustical Installer Name Role Phone Pepe Tran MD Primary Care Provider [phone] Encounters Date Type Department Care Team Description 01/20/2025 [facility] Only [facility] [address] [place] [address] Yun Gonzalez RN Personal history of nicotine dependence from Last 3 Months Allergies No known active allergies Medications estradioL [...] congestion 07/24/2019 03/06/2024 Annual physical exam 02/21/2019 12/05/2 024 Immunizations Immunization Administration Dates Next Due Influenza, Unspecified 07/15/2023(Deferr ed: Patient decision),09/03/2022(Deferred: Patient Refused),08/10/2021(Deferred: Patient Refused),10/15/2020(Deferred: Patient Refused) Social History Tobacco Use Types Packs/Day Years [...] on file Sexual Orientation Not on file Last Filed Vital Signs Vital Sign Reading Time Taken Comments Blood Pressure 122/68 09/18/2024 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 FT T: Report ID: [id number] Reading Location: [id number] Procedure Note Giana Salas MD - 02/15/2024 [...] Giana Hughes M.D. FT T: Report ID: [id number] Reading Location: [id number] Pepe Tran MD IMG CT PROCEDURES Final Resul t * HM COLONOSCOPY (01/05/2023) Historical Provider HEALTH MAINTENANCE Final Result from Last 3 Months or Most Recently Relevant to Health Maintenance Insurance [employer] ACCESS CHOICE [facility] Address: [facility] [id number] [place] [address] Care Teams Acoustical Installer Relationship Specialty Start Date End Date Pepe Tran MD PCP - General Family Medicine 01/07/19
== END 2025-04-20 11:50 | disposition home or self-care (01) ==
DX: D10.39 Benign neoplasm of other parts of mouth (principal)
CPT/HCPCS: 88305